=== PATIENT | male | born 1970 | race Caucasian/White ===

== ENCOUNTER 2023-01-15 16:39 | Emergency (ER) | payer MEDICARE, MEDICAID, SELFPAY ==
[2023-01-15 16:40] VITALS: BP 127/85; PULSE 104; RESP 18; TEMP 36.5; O2SAT 93
--- NOTE | 2023-01-15 20:50 | ED.GENADULT ---
HPI - General Adult General Date Seen: 01/15/23 Chief complaint: Unspecified Complaint, Adult Stated complaint: Mental Health Time Seen by Provider: 01/15/23 16:52 Source: other Mode of arrival: ambulatory Limitations: physical limitation History of Present Illness HPI narrative: Patient is a 52-year-old male resident of [facility] here with care home staff. He had a dentist appointment today, and according to staff member was doing okay until he sat in the chair at which time he became agitated. She says that he is fearful of going to the dentist and is supposed to receive a p.r.n. dose of Ativan before he goes. Apparently he did not have any Ativan available, she was told that he did receive his Ativan dose but upon further investigation she found out that there was not available so he did not get it. As result he became very agitated, he was biting his own arm, hitting out at people, and a buckling himself from the car and trying to get out of the car. Police were called to assist, and he apparently made statements about wanting to hurt himself, and so they wanted him evaluated in the emergency department. He is now calm back to baseline. She does not feel that he needs anything. She says that he has made statements like that before and that is is not meaningful. He wants to go home. He is not really able to provide much other history. He wonders around the room, he has lots of questions lots of commentary about things in the exam room, has questions about me, is cooperative and pleasant. Related Data Home Medications Medication Instructions Recorded Confirmed aspirin 81 mg tablet,delayed 81 mg PO DAILY 01/15/23 01/15/23 release buspirone 10 mg tablet mg 01/15/23 chlorhexidine gluconate 0.12 % 01/15/23 mouthwash Allergies Allergy/AdvReac Type Severity Reaction Status Date / Time fish oil Allergy Unknown Verified 01/15/23 16:46 salmon oil Allergy Unknown Verified 01/15/23 16:46 Review of Systems Status of ROS: Reports: unobtainable due to medical condition PFSH PFS Social History Smoking Status: Unknown if ever smoked Exam Narrative: Exam Narrative: Vital signs as noted above. In general, an alert, well-appearing patient. Head: Atraumatic Eyes: Pupils are equal reactive. Extraocular movements are full. Conjunctivae are normal. ENT: Mucous membranes are moist. Neck: Supple without lymphadenopathy. Heart: Regular rate and rhythm. No murmur or rub. Lungs: Clear bilaterally. No increased work of breathing, crackles or wheezes Extremities: Well perfused. No edema. He has a superficial abrasion on his left arm where he sustained a bite wound of his own doing. No significant puncture wound. Neurologic: He is alert, ambulatory. Speech fluent. Cooperative. At baseline per care home staff. Affect: Normal. Skin: Warm and dry. Well perfused. Const: Vital Signs, click to edit/add: Vital Signs - 24 hr 01/15/23 16:40 Temperature 97.7 F Pulse Rate [Pulse Oximeter] 104 H Respiratory Rate 18 Blood Pressure [Ri ght Upper Arm] 127/85 Pulse Oximetry 93 Oxygen Delivery Me thod Room Air Documenting provider has reviewed patient's vital signs: yes Course Course Hospital Course: Given that he is back to baseline, there does not seem to be any intervention needed here. She says that they will have his p.r.n. Ativan available shortly, she does not feel that anything else is needed from an ER standpoint. She is comfortable taking him back home. Vital Signs Vital signs: Initial Vital Signs Temperature 97.7 F 01/15/23 16:40 Temperature Source Temporal Artery Scan 01/15/23 16:40 Pulse Rate 104 H 01/15/23 16:40 Respiratory Rate 18 01/15/23 16:40 Blood Pressure 127/85 01/15/23 16:40 Blood Pressure Mean 99 01/15/23 16:40 Blood Pressure Position Supine 01/15/23 16:40 Pulse Oximetry 93 01/15/23 16:40 Oxygen Delivery Method 01/15/23 16:40 Vital Signs Temperature 97.7 F 01/15/23 16:40 Pulse Rate 104 H 01/15/23 16:40 Respiratory Rate 18 01/15/23 16:40 Blood Pressure 127/85 01/15/23 16:40 Pulse Oximetry 93 01/15/23 16:40 Oxygen Delivery Method 01/15/23 16:40 Temperature 97.7 F 01/15/23 16:40 Pulse Rate 104 H 01/15/23 16:40 Respiratory Rate 18 01/15/23 16:40 Blood Pressure 127/85 01/15/23 16:40 Pulse Oximetry 93 01/15/23 16:40 Oxygen Delivery Method 01/15/23 16:40 Discharge Plan Discharge Clinical Impression: Behavior disturbance Patient Disposition: Xfer Other Condition: Improved Additional Instructions: Return as needed Prescriptions: No Action aspirin 81 mg tablet,delayed release (DR/EC) 81 mg PO DAILY buspirone 10 mg tablet chlorhexidine gluconate 0.12 % mouthwash Stand Alone Forms: [facility] Info Instructions
== END 2023-01-15 17:24 | disposition home or self-care (01) ==
LOC: ED 17:23
PROVIDERS: Emergency Provider Emergency Medicine; PCP Family Medicine
DX: F91.9 Conduct disorder, unspecified (principal)
CPT/HCPCS: 99283

== ENCOUNTER 2025-05-27 10:39 | Outpatient (CLI) | payer MEDICARE, MEDICAID, SELFPAY ==
[2025-05-27 11:22] LABS: Cholesterol* 187 mg/dL (90-199); HDL Cholesterol* 32 mg/dL (>=40); LDL Cholesterol Calculated 97 mg/dL (<100); Triglycerides* 289 mg/dL (40-149)
--- OUTSIDE RECORDS SUMMARY | 2025-05-27 12:06 | XMS_ITS | Clinical Summary ---
Author Organization [facility] Address [facility] [place] [address] Care Team Providers Care Foreign Food Specialty Cook Name Role Phone Avila Orozco MD Primary Care Provider Staff, Other Clinical Unavailable Unavailabl Abran Peter Unavailable Kelsey Kelley Unavailable [phone] Jarvis Springer MD Unavailable Allergies Active Allergy Reactions Criticality Noted Date Comments Docosahexaenoic Acid-Epa Rash 08/05/2018 Medications COD LIVER OIL CAP one daily 0 Ac tive MULTIVITAMIN TAB take 1 tablet by oral route once daily with food 0 04/22/20 08 Active COENZYME Q10 50 MG CAP take 1 po daily 04/22/20 09 Active vitamin B complex (VITAMIN B COMPLEX) tablet Take 1 tablet by mouth once daily. 100 tablet prn 03/08/20 10 Active busPIRone (BUSPAR) 10 mg tablet Take 20mg by mouth 2 times daily for anxiety 0 07/31/20 16 Active acetaminophen (TYLENOL EXTRA STRGTH) 500 mg tablet Take 1 tablet by mouth every 6 hours if needed. Max acetaminophen dose: 4000mg in 24 hrs. 0 10/15/20 19 Active clotrimazole (LOTRIMIN) 1 % cream Apply topically to affected area(s) 2 times daily. 45 g 10/15/20 19 Active loperamide (IMODIUM) 2 mg capsule Take 4mg by mouth with 1st loose stool, then 2mg with each subsequent loose stool. Max 16 mg in 24 hrs 48 capsule 1 10/15/20 19 Active milk of magnesia concentrate (MOM) 2,400 mg/10 mL concentrate Take 10 mL by mouth once daily if needed for Constipation. 1 Bottle 10/15/20 19 Active citalopram (CELEXA) 40 mg tablet 12/09/19 Active medication order composer Take 1 coconut/flax seed omega softgel twice daily for heart health 0 01/06/20 20 Active chlorhexidine (PERIDEX) 0.12 % solutionIndication s:Dental anomaly 30 mL in mouth 2 times daily after brushing teeth, swish for 30 seconds then spit out. 473 mL 20 06/21/20 22 Active clonazePAM (KLONOPIN) 0.5 mg tablet Take 0.5 mg by mouth two times daily. 02/19/20 24 Active Erythromycin 2% (ERYDERM) 2 % external solutionIndication s:Acne, unspecified acne type Apply topically to affected area(s) two times daily. If needed. 60 mL 1 09/11/20 24 Active risperiDONE (RISPERDAL) 0.25 mg tablet Take 0.25 mg by mouth once daily in the morning. 01/01/20 25 Active LORazepam 1 mg tabletIndications: Anxiety TAKE 2 TABLETS BY MOUTH ONCE DAILY NEEDED 1 HOUR PRIOR TO DENTAL/MEDICAL PROCEDURE 2 Tablet 4 01/19/20 25 Active aspirin 81 mg enteric coated tabletIndications: Antiplatelet or antithrombotic long-term use TAKE 1 TABLET BY MOUTH DAILY WITH MEAL FOR HEART HEALTH 90 Tablet 3 03/12/20 25 Active cholecalciferol 1,000 unit tabletIndications: Vitamin D insufficiency Take 1 Tablet (1,000 units) by mouth once daily. 90 Tablet 03/12/20 25 Active loratadine 10 mg tabletIndications: Rash Take 1 Tablet (10 mg) by mouth once daily in the evening. 90 Tablet 03/12/20 25 Active terbinafine 1 % creamIndications:R lashawn Twice daily to areas of scaly skin, stop if no better after two weeks. 45 g 1 04/13/20 25 Active Active Problems Problem Noted Date Diagnosed Date Overweight 03/12/2023 PRETTY 02/09/2020 AHI-11.1/19.5 10/19/2020 Mixed hyperlipidemia 03/09/2016 Vitamin D insufficiency 11/30/2015 Tremor, essential 04/16/2014 Sensorineural hearing loss, bilateral 05/30/2012 Unspecified intellectual disabilities Prader-Willi syndrome Pure hyperglyceridemia Resolved Problems Problem Noted Date Diagnosed Date Resolved Date Worried well 06/28/2022 03/12/2023 Obesity, unspecified 023 Overview (04/15/2007): mild Impacted cerumen 05/30/2012 Overview (04/15/2007): recurrent Encounters Date Type Department Care Team Description 05/13/2025 Telephone [facility] [address] [place] [address] Avila Orozco MD Results 05/13/2025 Orders Only [facility] [address] [facility] [place] [address] Avila Orozco MD <No scans attached> 05/12/2025 2:45 PM CDT Orders Only [facility] [address] [place] [address] Lab, [place] [facility] 05/12/2025 Travel 04/13/2025 2:05 PM CDT Office Visit [facility] [address] [place] [address] Avila Orozco MD Medicare ANNUAL (subsequent) Visit (55 year old); Derm Problem (Dry skin); Foot Problem (Bilateral foot pain); Hand Pain/problem (Right hand tremor) 04/13/2025 Telephone [facility] [address] [place] [address] Avila Orozco MD ORDERS NEEDED (Lab Orders Resend Request) 04/13/2025 Travel 03/24/2025 Travel 03/18/[address] [address] Gabrielle Gonzales AuD 03/15/[address] [place] [address] Gabrielle Gonzales AuD Follow Up (Medical assistance not active) 03/11/2025 Refill [facility] [address] [facility] [place] [address] Avila Orozco MD Refill Request (Aspirin, Cholecalciferol, Loratadine) 03/10/2025 Telephone [facility] [address] [facility] [address] Avila Orozco MD Form 03/03/2025 3:00 PM CDT Office Visit [facility] [address] [facility] [place] [phone] Christian, Mayank Valladares Hearing Aid (New ear mold) 03/03/2025 Telephone [facility] [address] [facility] [place] [address] Christian, Mayank Valladares Appointment (ENT/audiology appointments) 03/03/2025 Travel from Last 3 Months Immunizations Immunization Administration Dates Next Due Influenza A (H1N1), Inactivated 11/29/2009 Influenza Virus, Unspecified 09/19/2016 Influenza, IIV3 (Age >=3 years) 09/15/2015,11/06 Influenza, IIV4 09/11/2022,10/31/2019,09/21/2017 Influenza, IIV4 (=>6mos) MDV 09/26/2021,09/05/20 20,10/14/2019 Influenza, Injectable, Mdck, Quadrivalent, W/preservative 09/22/2018 Td (Age >=7 Years) 12/10/2002 Tdap 05/30/2022,05/27/2012 Tuberculin (PPD) 04/22/2008,04/22/2007 Zoster (Shingrix-RZV, recombinant) 08/14/2022, Family History Medical History Relation Name Comments Diabetes Brother Cancer-prostate Father . Other Mother multiple sclero sis, pacemaker Heart Disease Neg. 1 Cancer-colon Neg. 2 Diabetes Sister Relation Name Status Comments Brother Father Mother Neg. 1 Neg. 2 Sister Social History Tobacco Use Types Packs/Day Years Used Date Smoking Tobacco: Never Smokeless Tobacco: Never Tobacco Cessation:Counseling Given: No Alcohol Use Standard Drinks/Week Comments No 0 (1 standard drink = 0.6 oz pur e alcohol) PHQ-2 Answer Date Recorded PHQ-2 Score 0 02/01/2019 Financial Resource Strain Answer Date R ecorded Difficulty of Paying Living Expenses Not on file 11/22/2021 Difficulty of Paying Living Expenses Not on file 11/22/2021 Sex and Gender Information Value Date Recorded Sex Assigned at Not on file Legal Sex Male 5:41 AM STRAPPER Gender Identity Not on file Sexual Orientation Not on file Obstetrics History Last Filed Vital Signs Vital Sign Reading Time Taken Comments Blood Pressure 124/84 04/13/2025 2:15 PM CDT Pulse 106 04/13/2025 2:15 PM CDT Temperature 35.7 C (96.3 F) 03/17/2024 9:51 AM CDT Respiratory Rate 12 03/17/2024 9:51 AM CDT Oxygen Saturation 94% 04/13/2025 2:15 PM CDT Inhaled Oxygen Concentration - - Weight 69.6 kg (153 lb 6.4 oz) 04/13/2025 2:15 P M CDT Height 152.4 cm (5') 04/13/2025 2:15 PM CDT Body Mass Index 29.96 04/13/2025 2:15 PM CDT Plan of Treatment Upcoming Encounters Date Type Department Care Team (Late st Contact Info) Description 06/29/2025 2:15 PM CDT Office Visit [facility] [place] [address] [phone] Corie Chin MD [address] [address] 04/15/2026 2:05 PM CDT Office Visit [facility] [address] [place] [address] Avila Orozco MD [address] [place] [address] Health Maintenance Due Date Last Done Comments Hepatitis B series for 19+ ( 1 of 3 - 19+ 3-dose series) 1990 Pneumococcal series for age 50+ (1 of 1 - PCV) 2021 Fecal testing non-DNA (FIT,FOBT,iFOBT) for age 45-75 03/30/2025 03/30/2024, 10/10/2022 Influenza Vaccine (Season Ended) 2025 09/11/2022, 09/26/2021, 09/05/2020, Additional history exists BMI (ht and wt on same day) for age 18+ 04/13/2026 04/13/2025, 03/17/2024, 03/12/2023, Additional history exists Lipids for age 45-75 05/12/2030 05/12/2025, 03/17/2024, 03/12/2023, Additional history exists Tetanus booster 05/30/2032 05/30/2022, 05/03, 12/10/2002 Hepatitis C screening for ag e 18-79 Completed 03/08/2022 Tdap Completed 05/30/2022, 05/27/2012 Zoster (shingles) series for age 50+ Completed 08/14/2022, 05/30/2022 HIV for age 15-65 Completed 03/12/2023 COVID-19 vaccine series Completed 09/23/20, 10/10/2023, 09/11/2022, Additional history exists Procedures Procedure Name Priority Date/Time Associated Diagnosis Comments DIRECT LDL ([facility] REFLEX ONLY) Routine 05/12/2025 3:01 PM CDT LIPID PANEL W REFLEX MEASURED LDL Routine 05/12/2025 3:01 PM CDT Pure hyperglyceridemia VITAMIN D 25 (DEFICIENCY) Routine 05/12/2025 3:01 PM CDT Vitamin D insufficiency BASIC METABOLIC PANEL Routine 05/12/2025 3:01 PM CDT Mixed hyperlipidemia TSH WITH REFLEX Routine 05/12/2025 3:01 PM CDT Overweight OCCULT BLOOD IFOBT STOOL Routine 03/30/2024 2:55 PM CDT Screening for colon cancer LC HIV-1/O/2, 4TH GENERATION Routine 03/12/2023 12:35 PM CDT Screening for HIV (human immunodeficiency virus) ANTI HCV Routine 03/08/2022 10:25 AM CDT Need for hepatitis C screening test from Last 3 Months or Most Recently Relevant to Health Maintenance Results * (ABNORMAL) DIRECT LDL ([facility] REFLEX ONLY) (05/12/2025 3:01 PM CDT) DIRECT LDL 123(H) <100 mg/dL [facility] Comment: Desirable range <100 mg/dL for primary prevention; <70 mg/dL for patients with CHD or diabetic patients with > or = 2 CHD risk factors. 05/12/2025 3:01 PM CDT 05/12/2025 3:02 PM CDT us Avila Orozco MD CHEMISTRY Final Result Performing Organization Address City/[facility]/ZIP Co de Phone Number [facility] [address] [place] [address], [facility] [address] [place] [address] * TSH WITH REFLEX (05/12/2025 3:01 PM CDT) TSH W/REFLEX TO FT4 1.60 0.40 - 4.50 mIU/L [facility] Blood BLOOD SPECIMEN / Unknown 05/12/2025 3:01 PM CDT 05/12/2025 3:02 PM CDT us Avila Orozco MD CHEMISTRY Final Result [facility] [address] [place] [address], [place] [phone] [facility] [address] [place] [address] * (ABNORMAL) LIPID PANEL W REFLEX MEASURED LDL (05/12/2025 3:01 PM CDT) CHOLESTEROL, TOTAL 233(H) <200 mg/dL [facility] HDL CHOLESTEROL 38(L) > OR = 40 mg/dL [facility] TRIGLYCERIDES 610(H) <150 mg/dL [facility] Comment: If a non-fasting specimen was collected, consider repeat triglyceride testing on a fasting specimen if clinically indicated. Morales et al. J. of Clin. Lipidol. 2015;9:129-169. There is increased risk of pancreatitis when the triglyceride concentration is very high (> or = 500 mg/dL, especially if > or = 1000 mg/dL). Morales et al. J. of Clin. Lipidol. 2015;9:129-169. LDL-CHOLESTEROL Ques t [facility] Comment: LDL cholesterol not calculated. Triglyceride levels greater than 400 mg/dL invalidate calculated LDL results. Reference range: <100 Desirable range <100 mg/dL for primary prevention; <70 mg/dL for patients with CHD or diabetic patients with > or = 2 CHD risk factors. LDL-C is now calculated using the Bubba-Anderson calculation, which is a validated novel method providing better accuracy than the Friedewald equation in the estimation of LDL-C. Bubba SS et al. MILIND. 2013;310(19): 7841-7541 (http://education.Streamup/faq/UJD247) CHOL/HDLC RATIO 6.1(H) <5.0 (calc) [facility] NON HDL CHOLESTEROL 195(H) <130 mg/dL (calc) [facility] Comment: For patients with diabetes plus 1 major ASCVD risk factor, treating to a non-HDL-C goal of <100 mg/dL (LDL-C of <70 mg/dL) is considered a therapeutic option. Blood BLOOD SPECIMEN / Unknown 05/12/2025 3:01 PM CDT 05/12/2025 3:02 PM CDT us Avila Orozco MD CHEMISTRY Final Result [facility] [address] [place] [address], [facility] [address] [place] [address] * VITAMIN D 25 (DEFICIENCY) (05/12/2025 3:01 PM CDT) VITAMIN D,25-OH,TOTAL,IA 34 30 - 100 ng/mL [facility] Comment: Vitamin D Status 25-OH Vitamin D: Deficiency: <20 ng/mL Insufficiency: 20 - 29 ng/mL Optimal: > or = 30 ng/mL For 25-OH Vitamin D testing on patients on D2-supplementation and patients for whom quantitation of D2 and D3 fractions is required, the [facility](TM) 25-OH VIT D, (D2,D3), LC/MS/MS is recommended: order code 15265 (patients >2yrs). See Note 1 Note 1 For additional information, please refer to http://education.Streamup/faq/SOH627 (This link is being provided for informational/ educational purposes only.) Blood BLOOD SPECIMEN / Unknown 05/12/2025 3:01 PM CDT 05/12/2025 3:02 PM CDT Avila Orozco MD SEND OUTS Final Result [facility] [address] [place] [address], [facility] [address] [place] [address] * (ABNORMAL) BASIC METABOLIC PANEL (05/12/2025 3:01 PM CDT) GLUCOSE 113(H) 65 - 99 mg/dL [facility] Comment: Fasting reference interval For someone without known diabetes, a glucose value between 100 and 125 mg/dL is consistent with prediabetes and should be confirmed with a follow-up test. UREA NITROGEN (BUN) 20 7 - 25 mg/dL [facility] CREATININE 0.74 0.70 - 1.30 mg/dL [facility] EGFR 108 > OR = 60 mL/min/1. 73m2 [facility] BUN/CREATININE RATIO SEE NOTE: 6 - 22 (calc) [facility] Comment: Not Reported: BUN and Creatinine are within reference range. SODIUM 137 135 - 146 mmol/L [facility] POTASSIUM 4.3 3.5 - 5.3 mmol/L [facility] CHLORIDE 98 98 - 110 mmol/L [facility] CARBON DIOXIDE 32 20 - 32 mmol/L [facility] ELECTROLYTE BALANCE 7 7 - 17 mmol/L (calc) [facility] CALCIUM 9.8 8.6 - 10.3 mg/dL [facility] Blood BLOOD SPECIMEN / Unknown 05/12/2025 3:01 PM CDT 05/12/2025 3:02 PM CDT Avila Orozco MD CHEMISTRY Final Result [facility] [address] [place] [address], [place] [phone] [email or web address] [address] [place] [address] * OCCULT BLOOD IFOBT STOOL (03/30/2024 2:55 PM CDT) STOOL BLOOD ,IFOBT Negative Negative 04/03/2024 8:51 AM CDT [facility] Stool STOOL SPECIMEN / Unknown Non-Blood / Unknown 03/30/2024 2:55 PM CDT 04/02/2024 2:55 PM CDT Avila Orozco MD LABORATORY Final Result [facility] [address] [place] [address], [place] [phone] * LC HIV-1/O/2, 4TH GENERATION (03/12/2023 12:35 PM CDT) Pathologist [facility] HIV Scr 4th Gen Non Reactive Non Reactive 03/15/2023 5:10 AM CDT [facility] Comment: HIV Negative HIV-1/HIV-2 antibodies and HIV-1 p24 antigen were NOT detected. There is no laboratory evidence of HIV infection. Blood BLOOD SPECIMEN / Unknown Butterfly / Unknown 03/12/2023 12:35 PM CDT 03/12/2023 12:37 PM CDT Narrative [facility] - 03/15/2023 5:10 AM CDT Performed at: [address] [place] [id number] Cardiology Physician Assistant: Hilton Martinez MD, Phone: [phone] us Avila Orozco MD LABORATORY Final Result [facility]) [address] [place] [address] * ANTI HCV (03/08/2022 10:25 AM CDT) [facility] HEPATITIS C ANTIBODY Non-React nahun Non-React nahun 03/08/2022 6:06 PM CDT [facility] Comment:Antibodies to HCV no t detected; does not exclude the possibility of exposure to HCV. Blood BLOOD SPECIMEN / Unknown Venipuncture / Unknown 03/08/2022 10:25 AM CDT 03/08/2022 10:29 AM CDT us Avila Orozco MD SEND OUTS Final Result [facility] [address] [place] [address], [place] from Last 3 Months or Most Recently Relevant to Health Maintenance Insurance MEDICARE PB ONLY MEDICARE PART A HB ONLY MEDICARE PART B HB ONLY Advance Directives Documents on File Type Date Recorded Patient Financial Foundations Representative Expl anation POLST 04/22/2023 Care Teams Foreign Food Specialty Cook Relationship Specialty Start Date End Date Avila Orozco MD [address] [place] [address] PCP - General 03/23/06 Staff, Other Clinical . Dentistry - General 05/27/12 Abran Stahl [address] [place] [address] Ophthalmology Surgery 05/27/12 Kelsey Kelley AuD [address] [place] [address] Audiology 05/27/12 Jarvis Springer MD [address] [facility] , [address] [place] [address] Psychology 05/27/12
--- OUTSIDE RECORDS SUMMARY | 2025-05-28 00:44 | XMS_ITS | Clinical Summary ---
Author Organization [facility] Address [facility] [place] [address] Care Team Providers Care News Writer Name Role Phone Avila Orozco MD Primary Care Provider Staff, Other Clinical Unavailable Unavailabl Abran Peter Unavailable Kelsey Kelley Unavailable [phone] Jarvis Springer MD Unavailable Allergies Active [...] Type Department Care Team Description 05/13/2025 Telephone [facility] [address] [facility] [place] [address] Avila Orozco MD Results 05/13/2025 Orders Only [facility] [address] [facility] [place] [address] Avila Orozco MD <No scans attached> 05/12/2025 2:45 PM CDT Orders Only [facility] [address] [facility] [address] Lab, [place] [facility] 05/12/2025 Travel 04/13/2025 2:05 PM CDT Office Visit [facility] [address] [facility] [address] Avila Orozco MD Medicare ANNUAL (subsequent) Visit (55 year old); Derm Problem (Dry skin); Foot Problem (Bilateral foot pain); Hand Pain/problem (Right hand tremor) 04/13/2025 Telephone [facility] [address] [facility] [address] Avila Orozco MD ORDERS NEEDED (Lab Orders Resend Request) 04/13/2025 Travel 03/24/2025 Travel 03/18/[address] [address] Gabrielle Gonzales AuD 03/15/[address] [place] [address] Gabrielle Gonzales AuD Follow Up (Medical assistance not active) 03/11/2025 Refill [facility] [address] [facility] [place] [address] Avila Orozco MD Refill Request (Aspirin, Cholecalciferol, Loratadine) 03/10/2025 Telephone [facility] [address] [place] [address] [facility] [address] Avila Orozco MD Form 03/03/2025 3:00 PM CDT Office Visit [facility] [address] [place] [phone] Christian, Mayank Valladares Hearing Aid (New ear mold) 03/03/2025 Telephone [facility] [address] [place] [address] Christian, Mayank Valladares Appointment (ENT/audiology appointments) 03/03/2025 [...] on file Legal Sex Male 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 [place] [address] [phone] Corie Chin MD [address] [address] 04/15/2026 2:05 PM CDT Office Visit [facility] [address] [place] [address] Avila Orozco MD [address] [place] [address] Health Maintenance Due Date Last Done Comments [...] MD CHEMISTRY Final Result Performing Organization Address City/[facility]/ZIP Co de Phone Number [facility] [address] [place] [address], [facility] [address] [place] [address] * TSH WITH REFLEX (05/12/2025 3:01 PM CDT) TSH W/REFLEX TO FT4 1.60 0.40 - 4.50 mIU/L [facility] Blood BLOOD SPECIMEN / Unknown 05/12/2025 3:01 PM CDT 05/12/2025 3:02 PM CDT us Avila Orozco MD CHEMISTRY Final Result [facility] [address] [place] [address], [place] [phone] [facility] [address] [place] [address] * (ABNORMAL) LIPID PANEL W REFLEX MEASURED LDL (05/12/2025 3:01 PM CDT) CHOLESTEROL, TOTAL 233(H) <200 mg/dL [facility] HDL CHOLESTEROL 38(L) > OR = 40 mg/dL [facility] TRIGLYCERIDES 610(H) <150 mg/dL Иван [...] of Clin. Lipidol. 2015;9:129-169. LDL-CHOLESTEROL Ques t [facility] Comment: LDL cholesterol not calculated. Triglyceride [...] LDL-C. Bubba SS et al. MILIND. 2013;310(19): 5779-9394 (http://education.3VR/faq/ERZ463) CHOL/HDLC RATIO 6.1(H) <5.0 (calc) [facility] NON HDL CHOLESTEROL 195(H) <130 mg/dL (calc) [facility] Comment: For patients with diabetes plus 1 major ASCVD risk factor, treating to a non-HDL-C goal of <100 mg/dL (LDL-C of <70 mg/dL) is considered a therapeutic option. Blood BLOOD SPECIMEN / Unknown 05/12/2025 3:01 PM CDT 05/12/2025 3:02 PM CDT us Avila Orozco MD CHEMISTRY Final Result [facility] [address] [place] [address], [facility] [address] [place] [address] * VITAMIN D 25 (DEFICIENCY) (05/12/2025 3:01 PM CDT) VITAMIN D,25-OH,TOTAL,IA 34 30 - 100 ng/mL [facility] Comment: Vitamin D Status 25-OH Vitamin D: Deficiency: <20 ng/mL Insufficiency: 20 - 29 ng/mL Optimal: > or = 30 ng/mL For 25-OH Vitamin D testing on patients on D2-supplementation and patients for whom quantitation of D2 and D3 fractions is required, the QuestAssure[facility](TM) 25-OH VIT D, (D2,D3), LC/MS/MS is recommended: order code 18330 (patients >2yrs). See Note 1 Note 1 For additional information, please refer to http://education.3VR/faq/NWX531 (This link is being provided for informational/ educational purposes only.) Blood BLOOD SPECIMEN / Unknown 05/12/2025 3:01 PM CDT 05/12/2025 3:02 PM CDT Avila Orozco MD SEND OUTS Final Result [facility] [address] [place] [address], [facility] [address] [place] [address] * (ABNORMAL) BASIC METABOLIC PANEL (05/12/2025 3:01 PM CDT) GLUCOSE 113(H) 65 - 99 mg/dL [facility] Comment: Fasting reference interval For someone without known diabetes, a glucose value between 100 and 125 mg/dL is consistent with prediabetes and should be confirmed with a follow-up test. UREA NITROGEN (BUN) 20 7 - 25 mg/dL [facility] CREATININE 0.74 0.70 - 1.30 [...] CDT Avila Orozco MD CHEMISTRY Final Result [facility] [address] [place] [address], [place] [phone] [facility] [address] [place] [address] * OCCULT BLOOD IFOBT STOOL (03/30/2024 2:55 PM CDT) STOOL BLOOD ,IFOBT Negative Negative 04/03/2024 8:51 AM CDT [facility] Stool STOOL SPECIMEN / Unknown Non-Blood / Unknown 03/30/2024 2:55 PM CDT 04/02/2024 2:55 PM CDT Avila Orozco MD LABORATORY Final Result [facility] [address] [place] [address], [place] [phone] * LC HIV-1/O/2, 4TH GENERATION (03/12/2023 12:35 PM CDT) Pathologist [facility] HIV Scr 4th Gen Non Reactive Non Reactive 03/15/2023 5:10 AM CDT [facility] Comment: HIV Negative HIV-1/HIV-2 antibodies and HIV-1 p24 antigen were NOT detected. There is no laboratory evidence of HIV infection. Blood BLOOD SPECIMEN / Unknown Butterfly / Unknown 03/12/2023 12:35 PM CDT 03/12/2023 12:37 PM CDT Narrative [facility]) - 03/15/2023 5:10 AM CDT Performed at: [address] [place] [address] [id number] Patient Relations Coordinator: Hilton Martinez MD, Phone: [phone] us Avila Orozco MD LABORATORY Final Result [facility] ([facility]) [address] [place] [address] * ANTI HCV (03/08/2022 10:25 AM CDT) [facility] HEPATITIS C ANTIBODY Non-React nahun Non-React nahun 03/08/2022 6:06 PM CDT [facility] Comment:Antibodies to HCV no t detected; does not exclude the possibility of exposure to HCV. Blood BLOOD SPECIMEN / Unknown Venipuncture / Unknown 03/08/2022 10:25 AM CDT 03/08/2022 10:29 AM CDT us Avila Orozco MD SEND OUTS Final Result [facility] 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 Dentistry - General 05/27/12 Abran Stahl [address] [place] [address] Ophthalmology Surgery 05/27/12 Kelsey Kelley AuD [address] [place] [address] Audiology 05/27/12 Jarvis Springer MD [address] [facility] , [address] [place] [address] Psychology 05/27/12
== END 2025-05-27 10:40 | disposition home or self-care (01) ==
PROVIDERS: PCP Family Medicine; Visit Provider Family Medicine
DX: E78.1 Pure hyperglyceridemia (principal)
CPT/HCPCS: 36415; 80061